=== PATIENT | female | born 1990 | race African-American/Black ===

== ENCOUNTER 2022-05-21 13:31 | Emergency (ER) | payer OTHER ==
[~2022-05-21] VITALS: Ht 167.6 cm; Wt 82.6 kg
[2022-05-21] MEDS ORDERED: MONI2KIT VA (13:54)
[2022-05-21] MEDS ORDERED: METR-265 PO (16:58)
[2022-05-21 17:01] LABS: GC DNA AMPLIFICATION NEGATIVE (NEGATIVE)
[2022-05-21 17:07] VITALS: BP 144/86
== END 2022-05-21 17:11 | disposition home or self-care (01) ==
LOC: M ED 13:31
DX: N76.0 Acute vaginitis (principal); Z91.018 Allergy to other foods; Z79.899 Other long term (current) drug therapy